=== PATIENT | male | born 1995 | race Two or more races ===

== ENCOUNTER 2019-04-25 12:49 | Emergency (ER) | payer BC ==
[~2019-04-25] VITALS: Ht 182.9 cm; Wt 104.3 kg
[2019-04-25 12:55] VITALS: BP 141/70
== END 2019-04-25 15:51 | disposition home or self-care (01) ==
LOC: ER 12:49
DX: M54.42 Lumbago with sciatica, left side (principal); M54.41 Lumbago with sciatica, right side; Z88.2 Allergy status to sulfonamides